=== PATIENT | male | born 1955 | race Caucasian/White ===

== ENCOUNTER → 2016-07-20 07:33 | Outpatient (CLI) | payer MEDICARE ==
[2016-03-20 14:07] VITALS: BMI 20.9
[~2016-07-20 07:33] MED LIST: ATROVENT 0.02%2.5 ML UPD; BROVANA15 MCG/2 M INH; BUPROPION HCL100 MG PO; HYDROCODON-ACE1 EAC6 PO; IPRAT-ALBUT 0.5-3 ML UPD; K-DUR20 MEQ PO; KLOR-CON 1010 MEQ PO; LIDOCAINE-PRILOC5 GM TP; MAG-OX 400 MG400 MG PO; NICODERM C1 PATCH .1 TRANSDERM; OMEPRAZOLE20 M1 PO; PERCOCET 5-3251 TAB PO; PHENERGAN25 M1 PO; PROAIR HFA8.5 GM INH; PROVENTIL HFA6.7 GM INH; THEO-24200 MG PO
== END | disposition home or self-care (01) ==
LOC: D.CT 07:33
DX: C20 Malignant neoplasm of rectum (principal)

== ENCOUNTER 2016-07-26 07:22 | Outpatient (CLI) | payer MEDICARE ==
[~2016-07-26] VITALS: Ht 172.7 cm; Wt 66.4 kg
[2016-07-26 08:25] VITALS: BP 120/70; Ht 172.7 cm; Wt 66.4 kg
[2016-07-26 09:21] LABS: BASOPHILS 0.5 % (0.0-2.0); EOSINOPHILS 1.8 % (0-7); HEMOGLOBIN 12.6 g/dL (13.5-17.5); IMMATURE GRANULOCYTES 0.3 % (0-5); LYMPHOCYTES 11.2 % (15-50); MCH 31.3 pg (26.0-34.0); MCHC 34.1 g/dL (31.0-37.0); MEAN PLATELET VOLUME 8.9 fL (7.4-10.4); MONOCYTES 7.7 % (2-11); NEUTROPHILS 78.5 % (40-80); RBC 4.02 10x6/uL (4.20-6.10); RDW 13.5 % (11.5-14.5); WBC 6.1 10x3/uL (4.8-10.8)
[2016-07-26 09:31] LABS: PLATELET COUNT 267 10x3/uL (130-400)
[2016-07-26 09:32] LABS: APTT 29.7 SECONDS (22.8-39.4); INR 1.02 (0.85-1.17); PROTIME 13.2 SECONDS (11.6-15.0)
[2016-07-26 09:38] LABS: CALC OSMOLALITY 263 mosm/kg (275-300); CARBON DIOXIDE 28.6 mmol/L (21.0-32.0); CHLORIDE - SERUM 96 mmol/L (98-107); CREATININE - SERUM 0.6 mg/dL (0.6-1.3); GLUCOSE 104 mg/dL (74-106); POTASSIUM - SERUM 4.5 mmol/L (3.5-5.1); SODIUM 133 mmol/L (136-145); UREA NITROGEN 6 mg/dL (7-18); eGFR NON AFRICAN AMERICAN > 90 mL/min (90-120)
--- NOTE | 2016-07-26 11:00 | NUR ---
RECEIVED POST LIVER BIOPSY. DRESSING C/D/I. SEE VITAL SIGN SHEET FOR VITAL SIGNS.
--- NOTE | 2016-07-26 15:00 | NUR ---
NO SIGNS OF BLEEDING, DISCHARGED HOME VIA WC.
== END 2016-07-26 15:00 | disposition home or self-care (01) ==
LOC: D.CT 07:22 → D.OPS 07:22 → D.CT 10:30 → D.OPS 15:00
PROVIDERS: Specialist
DX: C78.7 Secondary malignant neoplasm of liver and intrahepatic bile duct (principal)